=== PATIENT | male | born 1985 | race Caucasian/White ===

== ENCOUNTER 2021-11-02 07:03 | Inpatient (IN) | payer BC, OTHER ==
[~2021-11-02] VITALS: Ht 195.6 cm; Wt 122.5 kg
[2021-11-02] MEDS ORDERED: MORPHINE SULFATE 4 MG/ML SYR/VIAL IV ONE (08:30)
[2021-11-02] MEDS ORDERED: ONDANSETRON HCL 4 MG/2 ML VIAL IV ONE ×2 (08:30→12:45)
[2021-11-02] MEDS ORDERED: metroNIDAZOLE 500MG/100ML 100 ML IV ONE (08:30)
[2021-11-02] MEDS ORDERED: SODIUM CHLORIDE 0.9% 1,000 ML IV ONE ×3 (08:30→14:45)
[2021-11-02] MEDS ORDERED: cefTRIAXone 1GM/50ML D5W 50 ML IV ONE (08:30)
[2021-11-02 09:00] LABS: Basophils # (auto) 0 10 ^3/uL (0-0.2); Basophils % (auto) 0.2 % (0.0-2.0); Eosinophils # (auto) 0.1 10 ^3/uL (0-0.8); Hematocrit 46.3 % (41.0-53.0); Lymphocytes # (auto) 0.7 10 ^3/uL (0.4-5.4); Lymphocytes % (auto) 7.4 % (10.0-50.0); Mean Corpuscular Hemoglobin 32.3 pg (28.0-32.0); Mean Corpuscular Hgb Conc. 34.7 g/dL (32.0-36.0); Mean Corpuscular Volume 93.2 fL (80.0-100.0); Monocytes # (auto) 0.4 10 ^3/uL (0-1.3); Monocytes % (auto) 4.2 % (0.0-12.0); Neutrophils # (auto) 7.7 10 ^3/uL (1.6-8.6); Neutrophils % (auto) 87.2 % (37.0-80.0); Nucleated Red Blood Cells % 0.2 %; Red Blood Cells 4.97 10^6/uL (4.5-5.90); Red Cell Distribution Width 12.6 % (11.8-14.3); White Blood Cell 8.8 10^3/uL (4.4-10.8)
[2021-11-02 09:16] LABS: Albumin 4.1 g/dL (3.4-5.0); Calcium 9.1 mg/dL (8.5-10.1)
[2021-11-02 09:19] LABS: BUN/Creatinine Ratio 16.1; Bilirubin, Total 1.9 mg/dL (0.2-1.0); Total Protein 8.2 g/dL (6.4-8.2)
[2021-11-02] MEDS ORDERED: HYDROmorphone HCL 2 MG/ML VL/or syr IV ONE (12:45)
[2021-11-02 13:57] LABS: Urine Bacteria NONE SEEN /hpf (None Seen); Urine Blood Negative /uL (Negative); Urine WBC <1 /hpf (0 - 3)
[2021-11-02 14:03] LABS: Urine Specific Gravity > 1.050 (1.001-1.035)
[2021-11-02] MEDS ORDERED: PANTOPRAZOLE 40 MG/10 ML VIAL INJ IV ONE (14:45)
[2021-11-02 15:23] LABS: Cholesterol 179 mg/dL (< 200)
[2021-11-02 15:26] LABS: HDL Cholesterol 66 mg/dL (40-59); LDL Cholesterol 106 mg/dL (< 100); Triglycerides 130 mg/dL (< 150)
[2021-11-02 15:51] LABS: INR 0.94 (0.9-1.15)
[2021-11-02] MEDS: MORPHINE SULFATE INJ 2 MG/ml SYRG IV PRN (18:43)
[2021-11-02] MEDS: ONDANSETRON HCL 4 MG/2 ML VIAL IV PRN (20:43)
[2021-11-02] MEDS: metroNIDAZOLE 500MG/100ML 100 ML IV SCH (21:52)
[2021-11-02] MEDS: PANTOPRAZOLE 40 MG/10 ML VIAL INJ IV SCH (21:53)
[2021-11-03] MEDS: ONDANSETRON HCL 4 MG/2 ML VIAL IV PRN ×2 (03:38→08:28)
[2021-11-03] MEDS: MORPHINE SULFATE INJ 2 MG/ml SYRG IV PRN ×3 (03:39→16:21)
[2021-11-03 05:57] LABS: Basophils # (auto) 0 10 ^3/uL (0-0.2); Basophils % (auto) 0.5 % (0.0-2.0); Eosinophils # (auto) 0.2 10 ^3/uL (0-0.8); Eosinophils % (auto) 4.3 % (0.0-7.0); Hematocrit 41.1 % (41.0-53.0); Hemoglobin 13.7 g/dL (13.5-17.5); Lymphocytes # (auto) 1.3 10 ^3/uL (0.4-5.4); Lymphocytes % (auto) 25.7 % (10.0-50.0); Mean Corpuscular Hemoglobin 31.3 pg (28.0-32.0); Mean Corpuscular Hgb Conc. 33.3 g/dL (32.0-36.0); Mean Corpuscular Volume 94.2 fL (80.0-100.0); Monocytes # (auto) 0.6 10 ^3/uL (0-1.3); Monocytes % (auto) 11.1 % (0.0-12.0); Neutrophils # (auto) 2.9 10 ^3/uL (1.6-8.6); Neutrophils % (auto) 58.4 % (37.0-80.0); Nucleated Red Blood Cells % 0.1 %; Red Blood Cells 4.37 10^6/uL (4.5-5.90); Red Cell Distribution Width 12.6 % (11.8-14.3)
[2021-11-03] MEDS: metroNIDAZOLE 500MG/100ML 100 ML IV SCH ×2 (06:16→14:15)
[2021-11-03 06:25] LABS: Albumin 3.2 g/dL (3.4-5.0); Bilirubin, Total 1.1 mg/dL (0.2-1.0); Calcium 8.6 mg/dL (8.5-10.1); Total Protein 6.7 g/dL (6.4-8.2)
[2021-11-03] MEDS ORDERED: SODIUM CHLORIDE LOCK 10 ML ONE (08:07)
[2021-11-03] MEDS ORDERED: LIDOCAINE VISCOUS 2% 15ML UD ONE (08:07)
[2021-11-03] MEDS ORDERED: MIDAZOLAM HCL 5 MG/ML-1ML VIAL ONE (08:08)
[2021-11-03] MEDS ORDERED: diphenhdrAMINE HCL 50 MG/1 ML VL ONE (08:08)
[2021-11-03] MEDS ORDERED: fentaNYL CITRATE 100 MCG/2 ML VL ONE (08:08)
[2021-11-03] MEDS: PANTOPRAZOLE 40 MG/10 ML VIAL INJ IV SCH (09:57)
[2021-11-03] MEDS: cefTRIAXone 1GM/50ML D5W 50 ML IV SCH (09:57)
[2021-11-03] MEDS ORDERED: GOLYTELY 4L KIT PO ONE (11:30)
[2021-11-03 17:01] VITALS: BP 109/68
[2021-11-03 17:31] VITALS: BP 109/56
[2021-11-03] MEDS: HYDROcodone-ACET 5/325MG TAB PO PRN (19:01)
[2021-11-03 22:00] VITALS: BP 108/67
[2021-11-04] MEDS: metroNIDAZOLE 500MG/100ML 100 ML IV SCH ×3 (00:14→14:00)
[2021-11-04] MEDS: PANTOPRAZOLE 40 MG/10 ML VIAL INJ IV SCH ×2 (00:14→09:05)
[2021-11-04] MEDS: MORPHINE SULFATE INJ 2 MG/ml SYRG IV PRN ×2 (00:15→09:05)
[2021-11-04] MEDS: HYDROcodone-ACET 5/325MG TAB PO PRN (02:07)
[2021-11-04 05:00] VITALS: BP 116/57
[2021-11-04 06:00] LABS: INR 1.01 (0.9-1.15); Partial Thromboplastin Time 23.5 sec (24.6-33.4)
[2021-11-04] MEDS ORDERED: GOLYTELY 4L KIT PO ONE (06:00)
[2021-11-04] MEDS ORDERED: MAGNESIUM CITRATE SOLUTION 300 ML BTL PO ONE (06:00)
[2021-11-04 09:00] VITALS: BP 129/75
[2021-11-04] MEDS: cefTRIAXone 1GM/50ML D5W 50 ML IV SCH (09:04)
[2021-11-04 13:00] VITALS: BP 116/71
[2021-11-04] MEDS ORDERED: HYDROmorphone HCL 2 MG/ML VL/or syr IV PRN (14:00)
[2021-11-04] MEDS ORDERED: ONDANSETRON HCL 4 MG/2 ML VIAL IV PRN (14:00)
[2021-11-04] MEDS ORDERED: MIDAZOLAM HCL 2MG/2ML 2ml VIAL (1mg/ml) ONE (14:03)
[2021-11-04] MEDS ORDERED: fentaNYL CITRATE 100 MCG/2 ML VL ONE (14:03)
[2021-11-04] MEDS ORDERED: ONDANSETRON HCL 4 MG/2 ML VIAL ONE (14:06)
[2021-11-04] MEDS ORDERED: PROPOFOL 10 MG/ML 20 ML IV ONE ×2 (14:06→14:24)
[2021-11-04] MEDS ORDERED: LIDOCAINE 2% (LOCAL ANESTH.) PF 5ml SDV ONE (14:06)
[2021-11-04 16:44] VITALS: BP 116/69
[2021-11-04 18:05] VITALS: BP 116/69
[2021-11-04] MEDS ORDERED: MESA1.2T PO (18:16)
[2021-11-04] MEDS ORDERED: PANT40TA2 PO (18:16)
== END 2021-11-04 18:48 | disposition home or self-care (01) | DRG 385 ==
LOC: ER 07:03 → OVERFLOW 14:50 → WEST WING 11-03 15:33
PROVIDERS: ADMIT Registered Nurse; ATTEND Hospitalist
PROC: 0DB68ZX Excision of Stomach, Via Natural or Artificial Opening Endoscopic, Diagnostic (ICD-10-PCS; principal; 2021-11-04 14:01)
PROC: 0DBN8ZX Excision of Sigmoid Colon, Via Natural or Artificial Opening Endoscopic, Diagnostic (ICD-10-PCS; 2021-11-04 14:01)
DX: K50.90 Crohn's disease, unspecified, without complications (principal); K29.71 Gastritis, unspecified, with bleeding; E66.01 Morbid (severe) obesity due to excess calories; Z68.32 Body mass index [BMI] 32.0-32.9, adult; Z90.49 Acquired absence of other specified parts of digestive tract; Z20.822 Contact with and (suspected) exposure to COVID-19
CPT/HCPCS: 36415; 71045; 74177; 80053; 80061; 81001; 82270; 83036; 83605; 85025; 85610; 85730; 86850; 86900; 86901; 87040; 96365; 96368; 96375; C9113; G0378; J0696; J2001; J2250; J2405; J2704; J3490

== ENCOUNTER 2021-12-02 17:54 | Inpatient (IN) | payer BC ==
[~2021-12-02] VITALS: Ht 198.1 cm; Wt 120.8 kg
[~2021-12-02 17:54] MED LIST: MESA1.2T PO; PANT40TA2 PO
[2021-12-02 19:13] LABS: Basophils # (auto) 0.1 10 ^3/uL (0-0.2); Basophils % (auto) 0.9 % (0.0-2.0); Eosinophils # (auto) 0.2 10 ^3/uL (0-0.8); Eosinophils % (auto) 2.3 % (0.0-7.0); Hematocrit 42.7 % (41.0-53.0); Hemoglobin 14.4 g/dL (13.5-17.5); Lymphocytes # (auto) 2.1 10 ^3/uL (0.4-5.4); Lymphocytes % (auto) 21.2 % (10.0-50.0); Mean Corpuscular Hemoglobin 30.7 pg (28.0-32.0); Mean Corpuscular Hgb Conc. 33.7 g/dL (32.0-36.0); Mean Corpuscular Volume 90.9 fL (80.0-100.0); Monocytes # (auto) 0.6 10 ^3/uL (0-1.3); Monocytes % (auto) 5.8 % (0.0-12.0); Neutrophils # (auto) 6.8 10 ^3/uL (1.6-8.6); Neutrophils % (auto) 69.8 % (37.0-80.0); Nucleated Red Blood Cells % 0.1 %; Red Blood Cells 4.69 10^6/uL (4.5-5.90); Red Cell Distribution Width 12.8 % (11.8-14.3); White Blood Cell 9.8 10^3/uL (4.4-10.8)
[2021-12-02] MEDS ORDERED: fentaNYL CITRATE 100 MCG/2 ML VL IV ONE (19:15)
[2021-12-02] MEDS ORDERED: ONDANSETRON HCL 4 MG/2 ML VIAL IV ONE (19:15)
[2021-12-02] MEDS ORDERED: SODIUM CHLORIDE 0.9% 1,000 ML IV ONE (19:15)
[2021-12-02 19:21] LABS: Albumin 3.7 g/dL (3.4-5.0); Anion Gap 7 (5-15); BUN/Creatinine Ratio 14.6; Blood Urea Nitrogen 14 mg/dL (7-18); Calcium 8.8 mg/dL (8.5-10.1); Carbon Dioxide 24 mmol/L (21-32); Chloride 106 mmol/L (98-107); GFR African American 115 mL/min; GFR Non-African American 95 mL/min; Glucose 91 mg/dL (74-106); Lipase 153 U/L (73-393); Potassium 3.9 mmol/L (3.5-5.1); Sodium 137 mmol/L (136-145)
[2021-12-02 19:29] LABS: Alanine Aminotransferase 28 U/L (16-61); Alkaline Phosphatase 59 U/L (45-117); Aspartate Aminotransferase 12 U/L (15-37); Bilirubin, Total 0.9 mg/dL (0.2-1.0); Total Protein 7.8 g/dL (6.4-8.2)
[2021-12-02] MEDS ORDERED: ACETAMINOPHEN 325 MG TAB PO PRN (22:00)
[2021-12-02] MEDS ORDERED: predniSONE 20 MG TAB PO ONE (22:00)
[2021-12-02] MEDS: MESALAMINE 400mg Delayed Release Cap PO SCH (22:00)
[2021-12-02] MEDS ORDERED: TEMAZEPAM 15 MG CAP PO PRN (22:00)
[2021-12-02] MEDS ORDERED: HYDROcodone-ACET 5/325MG TAB PO PRN (22:00)
[2021-12-03] MEDS: PANTOPRAZOLE 40 MG TAB PO SCH ×3 (03:21→21:27)
[2021-12-03 06:15] LABS: Basophils # (auto) 0.1 10 ^3/uL (0-0.2); Basophils % (auto) 0.7 % (0.0-2.0); Eosinophils # (auto) 0.3 10 ^3/uL (0-0.8); Eosinophils % (auto) 3.7 % (0.0-7.0); Hematocrit 38.8 % (41.0-53.0); Hemoglobin 13.5 g/dL (13.5-17.5); Lymphocytes # (auto) 1.7 10 ^3/uL (0.4-5.4); Lymphocytes % (auto) 22.6 % (10.0-50.0); Mean Corpuscular Hemoglobin 31.8 pg (28.0-32.0); Mean Corpuscular Hgb Conc. 34.8 g/dL (32.0-36.0); Mean Corpuscular Volume 91.4 fL (80.0-100.0); Monocytes # (auto) 0.4 10 ^3/uL (0-1.3); Monocytes % (auto) 5.6 % (0.0-12.0); Neutrophils # (auto) 4.9 10 ^3/uL (1.6-8.6); Neutrophils % (auto) 67.4 % (37.0-80.0); Nucleated Red Blood Cells % 0.1 %; Red Blood Cells 4.24 10^6/uL (4.5-5.90); Red Cell Distribution Width 12.6 % (11.8-14.3); White Blood Cell 7.3 10^3/uL (4.4-10.8)
[2021-12-03 06:50] LABS: Albumin 3.4 g/dL (3.4-5.0); Calcium 8.5 mg/dL (8.5-10.1); Potassium 4.4 mmol/L (3.5-5.1)
[2021-12-03 06:53] LABS: Bilirubin, Total 1.1 mg/dL (0.2-1.0); Total Protein 6.6 g/dL (6.4-8.2)
[2021-12-03] MEDS: HYDROmorphone HCL 2 MG/ML VL/or syr IV ONE ×2 (08:00→09:47)
[2021-12-03] MEDS: MESALAMINE 400mg Delayed Release Cap PO SCH ×3 (08:38→21:27)
[2021-12-03] MEDS: ONDANSETRON HCL 4 MG/2 ML VIAL IV PRN ×2 (09:43→14:51)
[2021-12-03] MEDS ORDERED: predniSONE 5 MG TAB PO SCH (10:00)
[2021-12-03] MEDS ORDERED: ENTOCORT 9 MG PO SCH (11:15)
[2021-12-03] MEDS: MORPHINE SULFATE INJ 2 MG/ml SYRG IV PRN ×2 (14:51→20:07)
[2021-12-03 17:00] VITALS: BP 124/79
[2021-12-03 18:18] VITALS: BP 124/79
[2021-12-03 22:00] VITALS: BP 102/56
[2021-12-04 05:00] VITALS: BP 114/48
[2021-12-04] MEDS: MESALAMINE 400mg Delayed Release Cap PO SCH ×2 (05:44→15:24)
[2021-12-04 05:46] LABS: Basophils # (auto) 0.1 10 ^3/uL (0-0.2); Basophils % (auto) 0.8 % (0.0-2.0); Eosinophils # (auto) 0.1 10 ^3/uL (0-0.8); Eosinophils % (auto) 1.5 % (0.0-7.0); Hematocrit 39.5 % (41.0-53.0); Hemoglobin 13.5 g/dL (13.5-17.5); Lymphocytes # (auto) 1.6 10 ^3/uL (0.4-5.4); Mean Corpuscular Hemoglobin 31.3 pg (28.0-32.0); Mean Corpuscular Hgb Conc. 34.3 g/dL (32.0-36.0); Mean Corpuscular Volume 91.4 fL (80.0-100.0); Monocytes # (auto) 0.5 10 ^3/uL (0-1.3); Neutrophils % (auto) 75.7 % (37.0-80.0); Red Blood Cells 4.32 10^6/uL (4.5-5.90); Red Cell Distribution Width 12.6 % (11.8-14.3); White Blood Cell 9.2 10^3/uL (4.4-10.8)
[2021-12-04 06:04] LABS: BUN/Creatinine Ratio 17.2; Calcium 8.7 mg/dL (8.5-10.1); Potassium 4.6 mmol/L (3.5-5.1)
[2021-12-04 09:00] VITALS: BP 124/77
[2021-12-04] MEDS ORDERED: ENTOCORT 9 MG PO SCH (10:00)
[2021-12-04] MEDS: PANTOPRAZOLE 40 MG TAB PO SCH (10:56)
[2021-12-04] MEDS: MORPHINE SULFATE INJ 2 MG/ml SYRG IV PRN (11:25)
[2021-12-04 13:00] VITALS: BP 119/70
[2021-12-04 17:00] VITALS: BP 120/79
[2021-12-04] MEDS ORDERED: BUDE0.5S PO (17:44)
== END 2021-12-04 18:10 | disposition home or self-care (01) | DRG 387 ==
LOC: ER 17:59 → OVERFLOW 22:06 → WEST WING 12-03 16:41
PROVIDERS: ADMIT Nurse Practitioner; ATTEND Internal Medicine
DX: K50.911 Crohn's disease, unspecified, with rectal bleeding (principal); K40.90 Unilateral inguinal hernia, without obstruction or gangrene, not specified as recurrent; Z20.822 Contact with and (suspected) exposure to COVID-19; Z84.1 Family history of disorders of kidney and ureter
CPT/HCPCS: 36415; 74176; 80048; 80053; 83605; 83690; 85025; 86141; 93005; 96361; 96374; 96375; 96376; G0378; J2405